=== PATIENT | male | born 1985 ===

== ENCOUNTER 2017-04-26 21:35 | Inpatient (IN) | payer MEDICAID, OTHER ==
[2017-04-26 21:39] VITALS: O2SAT 99
--- NOTE | 2017-04-26 22:23 | ED PDOC ---
HPI: Psych/Substance Abuse Time Seen by Provider: 04/26/17 21:40 Chief Complaint (Nursing): Psychiatric Evaluation Chief Complaint (Provider): Psychiatric evaluation ED Caveat: Uncooperative History Per: Family Onset/Duration Of Symptoms: Days Current Symptoms Are (Timing): Still Present Additional Complaint(s): The patient is a 32yo male, brought in by his mother for evaluation due to aggressive behaviour. Patient is refusing to answer questions and his mother provides most of the history. Mother reports the patient ran out of his medications and is refusing to get refills or new medications. A full HPI and ROS is limited due to patient being uncooperative. Past Medical History Reviewed: Historical Data, Nursing Documentation, Vital Signs Vital Signs: Last Vital Signs Temp 98.3 F 04/26/17 21:36 Pulse 65 04/26/17 21:36 Resp 20 04/26/17 21:36 BP 143/71 04/26/17 21:36 Pulse Ox 99 04/26/17 21:36 - Medical History PMH: Bipolar Disorder, Schizophrenia Denies: Asthma, Diabetes, Hepatitis, HIV, HTN, Pneumonia, Chronic Kidney Disease, Seizures, Sexually Transmitted Disease - Surgical History Surgical History: Tonsillectomy - Family History Family History: States: Unknown Family Hx - Home Medications Home Medications: Ambulatory Orders Medication Instructions Recorded Smolan Carbonate [Smolan 300 mg PO Q12 #60 cap 09/09/16 Carbonate 300MG] OLANZapine [Zyprexa] 2.5 mg PO Q12 #60 tab 09/09/16 lamoTRIgine [Lamictal] 25 mg PO Q12 #60 tab 09/09/16 traZODone [Desyrel] 50 mg PO HS #30 tab 09/09/16 - Allergies Allergies/Adverse Reactions: Allergies Allergy/AdvReac Type Severity Reaction Status Date / Time No Known Allergies Allergy Verified 04/14/16 10:00 Review of Systems ROS Statement: Except As Marked, All Systems Reviewed And Found Negative Psych: Positive for: Other (non complaint with medications) Physical Exam - Reviewed Nursing Documentation Reviewed: Yes Vital Signs Reviewed: Yes - Physical Exam Appears: Positive for: Well, Non-toxic, No Acute Distress Head Exam: Positive for: ATRAUMATIC, NORMAL INSPECTION, NORMOCEPHALIC Skin: Positive for: Normal Color Eye Exam: Positive for: Normal appearance Neck: Positive for: Normal Cardiovascular/Chest: Positive for: Regular Rate, Rhythm Respiratory: Positive for: Normal Breath Sounds. Negative for: Respiratory Distress Gastrointestinal/Abdominal: Positive for: Normal Exam Extremity: Positive for: Normal ROM. Negative for: Deformity, Swelling Neurologic/Psych: Positive for: Alert, Oriented, Mood/Affect (flat) - Laboratory Results Result Diagrams: 04/26/17 22:27 04/26/17 22:27 - ECG O2 Sat by Pulse Oximetry: 99 (RA) Pulse Ox Interpretation: Normal Medical Decision Making Medical Decision Making: Time: 2149 Impression: Decompensated bipolar disorder in setting of non-compliance with medicine regimen. Plan: -- Labs -- Urinalysis -- Crisis evaluation Reassess 204: Pt. admitted to psychiatric service w/ dx: of bipolar d/o under Dr. Reagan. Scribe Attestation: Documented by Faith Espinal acting as a scribe for Nicolas Duff MD. Provider Attestation: All medical record entries made by the Scribe were at my direction and personally dictated by me. I have reviewed the chart and agree that the record accurately reflects my personal performance of the history, physical exam, medical decision making, and the department course for this patient. I have also personally directed, reviewed, and agree with the discharge instructions and disposition. Disposition - Clinical Impression Clinical Impression: Bipolar disorder - Disposition Disposition Time: 02:04 Condition: STABLE
[2017-04-26 22:31] LABS: BASO % 0.5 % (0.0-2.0); EOS # 0.2 K/uL (0.0-0.7); EOS % 3.3 % (0.0-4.0); HEMATOCRIT 40.3 % (35.0-51.0); LYMPH # 1.6 K/uL (1.0-4.3); LYMPH % 21.8 % (20.0-40.0); MEAN CELL VOLUME 85.3 fl (80.0-94.0); MEAN CORPUSCULAR HEMOGLOBIN 28.5 pg (27.0-31.0); MEAN CORPUSCULAR HGB CONC 33.4 g/dL (33.0-37.0); MEAN PLATELET VOLUME 8.7 fl (7.2-11.7); MONO # 0.5 K/uL (0.0-0.8); MONO % 7.4 % (0.0-10.0); NEUT # 4.9 K/uL (1.8-7.0); RED CELL DISTRIBUTION WIDTH 13.3 % (11.5-14.5); WHITE BLOOD COUNT 7.3 K/uL (4.8-10.8)
[2017-04-26 22:40] LABS: RBC URINE 3 /hpf (0-3); URINE BACTERIA RARE (<OCC); URINE BILIRUBIN NEGATIVE (NEGATIVE); URINE BLOOD NEGATIVE (NEGATIVE); URINE COLOR YELLOW (YELLOW); URINE GLUCOSE (UA) NEG (Normal); URINE KETONE NEGATIVE (NEGATIVE); URINE LEUKOCYTE ESTERASE NEG Leu/uL (Negative); URINE PROTEIN NEGATIVE (NEGATIVE); URINE UROBILINOGEN 0.2-1.0 mg/dL (0.2-1.0); WBC URINE 1 /hpf (0-5)
[2017-04-26 22:46] LABS: ALCOHOL SERUM < 10 mg/dl (0-10); BLOOD UREA NITROGEN 15 mg/dl (9-20); CALCIUM 9.4 mg/dL (8.4-10.2); CARBON DIOXIDE 23 mmol/L (22-30); CHLORIDE 104 mmol/L (98-107); GFR AFRICAN-AMERICAN > 60; GLUCOSE,RANDOM 84 mg/dL (75-110); POTASSIUM 3.8 MMOL/L (3.6-5.0); SODIUM 140 mmol/l (132-148)
[2017-04-27] MEDS ORDERED: Alum-Mag Hydrox-Simethicone Susp (30 mL) PO PRN (04:54)
[2017-04-27] MEDS ORDERED: Magnesium Hydroxide Susp 30 ml UD PO PRN (04:54)
[2017-04-27] MEDS ORDERED: DiphenhydrAMINE 50 mg/ml Inj IM PRN (04:54)
--- NOTE | 2017-04-27 05:32 | PCM.BM ---
<Maribel Perez - Last Filed: 04/27/17 05:30> Treatment Plan Problems - Problems identified on initial assessmt Agitatted/aggressive behavior Date Initiated: 04/27/17 Time Initiated: 05:31 Assessment reference: NA Status: Active Medication nonadherence Date Initiated: 04/27/17 Time Initiated: 05:31 Assessment reference: NA Status: Active Treatment assets and liabiliti Patient Assests: ADL independent, good support system, negotiates basic needs Patient Liabilities: relationship conflicts - Milieu Protocol Maintain good personal hygiene: daily Encourage regular showers, daily Assist patient to perform ADL's, every shift Remind patient to perform daily oral care Conduct patient checks and document Observation sheet: Q15 minutes Maintain personal safety: every shift Educate patient to report safety concerns to staff, every shift Monitor environment for contraband/sharps Medication safety: Monitor for expected outcome, potential side effects: every shift, daily, Assess barriers to learning: every shift, Assess readiness for medication education: every shift <Lukas Donahue J - Last Filed: 05/06/17 09:52> Family Contact Family involvement: Family/SO is involved Family contact: Patient agrees to contact, Family has been contacted by patient , Telephone contact initiated by staff Family contact name: Naheed Merrill (Mother) [phone] Family contacted how many times per week?: 2 Family contact comment: Pt's mother is concerned about pt's aggressivity in the home and wants to ensure that he will be compliant with outpatient services upon discharge. Customer Development Manager discussed how pt has been on the unit and the medications that were initiated. - Goals for Treatment Patient goals for treatment: Pt has limited insight and could not list any goals. Patient's family/SO goals for treatment: Gain insight and understand importance for outpatient services. Discharge/Continuing Care - Education Needs Education Needs: Family Medication, Family Aftercare Safety Plan, Patient Medication, Patient Diagnosis/Disease Process, Patient Coping Skills, Patient Anger Management skills, Patient Aftercare Safety Plan - Discharge Discharge Criteria: Tolerates medication w/o severe side effects, Free of paranoid thoughts, Free of agitation, Normal sleep pattern, Reduction of target symptoms Discharge to:: Home, With Family - Treatment Team Participation Discussed with Family/SO: Yes Was Patient/Family/SO present at Treatment Team Meeting: Yes
--- NOTE | 2017-04-27 12:48 | CP.PCM.CON ---
History of Present Illness - History of Present Illness History of Present Illness: Reason for Consult: per hospital protocol CC: aggressive behavior HPI 32 year old male no past medical history states he was brought here after his mother called this merchandise complaint adjuster on him for throwing things around the house and locking her out. Patient denies any other complaints at this time. HD stable NAD. ROS: per HPI, 12 systems reviewed and negative PMH: denies PSH: denies FH: denies SH: denies tobacco, ETOH, IVDU Meds: as below Allergies: NKDA Vitals: reviewed and currently stable Exam: GEN: WDWN, alert, cooperative HEENT: NCAT, PERRL, EOMI NECK: supple, no JVD, no lymphadenopathy CARDIAC: +S1S2 RRR LUNG: CTAB No WRR ABD: SOFT NT ND BSX4 NO MASSES NO HSM EXT: +pedal pulses, equal strength NEURO: AAOx3 SKIN warm, dry PSYCH normal mood, normal affect Labs: 04/26/17 22:27 04/26/17 22:27 Assessment and Plan: 32 year old male no past medical history states he was brought here after his mother called this merchandise complaint adjuster on him for throwing things around the house and locking her out. Patient denies any other complaints at this time. HD stable NAD. Aggressive behavior management per psychiatry team Past Patient History - Past Medical History & Family History Past Medical History?: No - Past Social History Smoking Status: Never Smoked - CARDIAC Hx Cardiac Disorders: No - PULMONARY Hx Respiratory Disorders: No - NEUROLOGICAL Hx Neurological Disorder: No - HEENT Hx HEENT Problems: No - RENAL Hx Chronic Kidney Disease: No - ENDOCRINE/METABOLIC Hx Endocrine Disorders: No - HEMATOLOGICAL/ONCOLOGICAL Hx Blood Disorders: No - INTEGUMENTARY Hx Dermatological Problems: No - MUSCULOSKELETAL/RHEUMATOLOGICAL Hx Musculoskeletal Disorders: No - GASTROINTESTINAL Hx Gastrointestinal Disorders: No - GENITOURINARY/GYNECOLOGICAL Hx Genitourinary Disorders: No - PSYCHIATRIC Hx Psychophysiologic Disorder: Yes - SURGICAL HISTORY Hx Surgeries: No Hx Tonsillectomy: No - ANESTHESIA Hx Anesthesia: No Hx Anesthesia Reactions: No Meds Allergies/Adverse Reactions: Allergies Allergy/AdvReac Type Severity Reaction Status Date / Time No Known Allergies Allergy Verified 04/14/16 10:00 - Medications Medications: Current Medications Acetaminophen (Tylenol 325mg Tab) 650 mg PO Q4 PRN PRN Reason: Pain, moderate (4-7) Al Hydrox/Mg Hydrox/Simethicone (Maalox Plus 30 Ml) 30 ml PO Q4 PRN PRN Reason: Dyspepsia Diphenhydramine HCl (Benadryl) 50 mg IM Q6 PRN PRN Reason: Extrapyramidal S/S Unable PO Diphenhydramine HCl (Benadryl) 50 mg PO HS PRN PRN Reason: Sleep Haloperidol (Haldol) 5 mg PO Q4 PRN PRN Reason: Agitation Haloperidol Lactate (Haldol) 5 mg IM Q4 PRN PRN Reason: Agitation, Unable to Take PO Lorazepam (Ativan) 2 mg IM Q4 PRN PRN Reason: Anxiety/Agitation,Unable PO Lorazepam (Ativan) 2 mg PO Q4 PRN PRN Reason: Anxiety/Agitation Magnesium Hydroxide (Milk Of Magnesia) 30 ml PO HS PRN PRN Reason: Constipation Results - Vital Signs Recent Vital Signs: Last Vital Signs Temp 98.3 F 04/27/17 05:25 Pulse 65 04/27/17 05:25 Resp 20 04/27/17 05:25 BP 143/71 04/27/17 05:25 Pulse Ox 99 04/27/17 03:41 - Labs Result Diagrams: 04/26/17 22:27 04/26/17 22:27
--- NOTE | 2017-04-27 20:05 | PCM.PSYCH ---
Initial Psychiatric Evaluation - Initial Psychiatric Evaluation Chief Complaint (in patient's own words): i was at home and i had a fight with mother(verbal) and I locked her out of house Patient's Reaction to Hospitalization: pt was admitted to [facility] from [facility] er after presented to er via ems. reports that after a verbal argument with his mother he locked her out of apartment. When I looked out of window- i saw police and ambulances coming from both directions on my block. 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 ER notes reveal that pt was reported throwing furniture at home-pt. defers this. Pt. reports that has not been taking medications for several months because he does not think he needed them "I was feeling better". When I argue with my mother I go out at night and walk around-sometimes I throw garbage cans over a gate etc to meet people sometimes I walk in and out of restaurants (entrance/exit) because I want to meet people". Reports that "was trying to build a momentum to start school [id number] so I cleaned out my bank account and gave my resignation for job for two weeks. 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 History of Present Illness and Precipitating Events: see above Current Medications: Active Medications Generic Name Dose Route Start Last Admin Trade Name Freq PRN Reason Stop Dose Admin Acetaminophen 650 mg 04/27/17 04:54 Tylenol 325mg Tab PO Q4 PRN Pain, moderate (4-7) Al Hydrox/Mg Hydrox/Simethicone 30 ml 04/27/17 04:54 Maalox Plus 30 Ml PO Q4 PRN Dyspepsia Diphenhydramine HCl 50 mg 04/27/17 04:54 Benadryl IM Q6 PRN Extrapyramidal S/S Unable PO Diphenhydramine HCl 50 mg 04/27/17 04:57 Benadryl PO HS PRN Sleep Haloperidol 5 mg 04/27/17 04:54 Haldol PO Q4 PRN Agitation Haloperidol Lactate 5 mg 04/27/17 04:54 Haldol IM Q4 PRN Agitation, Unable to Take PO Lorazepam 2 mg 04/27/17 04:54 Ativan IM Q4 PRN Anxiety/Agitation,Unable PO Lorazepam 2 mg 04/27/17 04:54 Ativan PO Q4 PRN Anxiety/Agitation Magnesium Hydroxide 30 ml 04/27/17 04:54 Milk Of Magnesia PO HS PRN Constipation Past Psychiatric History - Past Psychiatric History Prior Professional Help: previous treatment inpt outpt [facility] no consistant f/u History of Abuse: denies History of ETOH/Drug Use: denies History of Family Illness: denies Pertinent Medical Hx (Current Medical&Sleep Prob, Allergies): Allergies Allergy/AdvReac Type Severity Reaction Status Date / Time No Known Allergies Allergy Verified 04/14/16 10:00 [place] Carbonate [S[place] Carbonate 300MG] 300 mg PO Q12 #60 cap 09/09/16 OLANZapine [Zyprexa] 2.5 mg PO Q12 #60 tab 09/09/16 lamoTRIgine [Lamictal] 25 mg PO Q12 #60 tab 09/09/16 traZODone [Desyrel] 50 mg PO HS #30 tab 09/09/16 Review of Systems - Psychiatric Psychiatric: Difficulty Concentrating, Irritability, Mood Swings Mental Status Examination - Personal Presentation Personal Presentation: Looks younger than stated age - Affect Affect: Constricted - Motor Activity Motor Activity: Psychomotor Retardation - Reliability in Providing Information Reliability in Providing Information: Other - Mood Additional comments: vacillations in mood, decreased sleep - Formal Thought Process Formal Thought Process: Paranoia DSM 5 DX - DSM 5 DSM 5 Diagnosis: Bipolar I MRE MANIC Hx. Schizoaffective Disorder Bipolar Type - Recommended/Plan of Treatment Treatment Recommendations and Plan of Treatment: inpt admission per attending vital signs and clinical observation per protocol and per status hospitalist consult prns per unit protocol start risperdal m tab 2mg po hs start depakote ec 100omg po hs (pt 180lbs/approx. 90 kg) team to attempt to obtain further collateral information
[2017-04-27] MEDS: Divalproex 500 mg ER (ONCE DAILY formulation) PO SCH (21:14)
[2017-04-27] MEDS: Risperidone M TAB 2 MG PO SCH (21:15)
[2017-04-28 09:16] LABS: T4 9.15 ug/dl (5.5-11.0)
[2017-04-28 09:29] LABS: THYROID STIMULATING HORMONE 1.43 mIU/ML (0.46-4.68)
--- NOTE | 2017-04-28 11:30 | PCM.PYCHPN ---
Psychiatric Progress Note - Psychiatric Progress Note Patient seen today, length of contact: in treatment team Patient Chief Complaint: i hate white people Problems Identified/Issues Discussed: pt has submitted and retracted a 48 hour notice. talks about diagnosing himself with borderline personality disorder and using dbt recordings to treat himself. he states he feels like he is better because he got a job and a bank account, but then he states he submitted his 2 weeks notice at work and closed his bank account and he wants to move to [employer]. his thoughts are disorganized. he denies medication side effects. Medication Change: No Medical Record Reviewed: Yes Mental Status Examination - Cognitive Function Orientation: Person, Place, Situation, Time Memory: Intact Attention: Poor Concentration: Poor Association: Loose Fund of Knowledge: WNL Decription of patient's judgement and insights: superficial insight, questionable judgment - Affect Affect: Constricted - Speech Speech: Appropriate - Formal Thought Process Formal Thought Process: Delusions, Paranoia, Loosening of associations Psychotic Thoughts and Behaviors: grossly disorganized thoughts - Suicidal Ideation Suicidal Ideation: No - Homicidal Ideation Homicidal Ideation: No Goal/Treatment Plan - Goal/Treatment Plan Need for Continued Stay: Remain at risks for inpatient hospitalization, Severe functional impairment Progress Toward Problem(s) and Goals/Treatment Plan: schizophrenia pt needs further treatment and stabilization grossly disturbed thoughts/behaviors will continue with risperdal and titrate up dose encourage appropriate participation in groups Estimated Date of D/C: 05/10/17
[2017-04-28] MEDS: Divalproex 500 mg ER (ONCE DAILY formulation) PO SCH (21:33)
[2017-04-28] MEDS: Risperidone M TAB 2 MG PO SCH (21:33)
[2017-04-29] MEDS: Risperidone M tab 1 MG PO SCH (09:51)
--- NOTE | 2017-04-29 10:23 | PCM.PYCHPN ---
Psychiatric Progress Note - Psychiatric Progress Note Patient seen today, length of contact: discussed with team Patient Chief Complaint: i m okay Problems Identified/Issues Discussed: pt taking risperdal as prescribed reports good sleep visible in milieu. he denies side effects with risperdal. no aggression or agitation. Medication Change: Yes (inc. risperdal) Medical Record Reviewed: Yes Mental Status Examination - Cognitive Function Orientation: Person, Place, Situation, Time Memory: Intact Attention: Poor Concentration: Poor Association: Loose Fund of Knowledge: WNL Decription of patient's judgement and insights: variable - Mood Mood: Anxious - Affect Affect: Constricted - Speech Speech: Appropriate - Formal Thought Process Formal Thought Process: Delusions, Paranoia, Loosening of associations Psychotic Thoughts and Behaviors: grossly disorganized thoughts - Suicidal Ideation Suicidal Ideation: No - Homicidal Ideation Homicidal Ideation: No Goal/Treatment Plan - Goal/Treatment Plan Need for Continued Stay: Remain at risks for inpatient hospitalization, Severe functional impairment Progress Toward Problem(s) and Goals/Treatment Plan: schizophrenia pt needs further treatment and stabilization grossly disturbed thoughts/behaviors will continue with risperdal and titrate up dose to 1mg in am and 2hs today and will increase up to 3mg bid encourage appropriate participation in groups Estimated Date of D/C: 05/10/17
[2017-04-29] MEDS: Risperidone M TAB 2 MG PO SCH (21:47)
[2017-04-29] MEDS: Divalproex 500 mg ER (ONCE DAILY formulation) PO SCH (21:47)
[2017-04-30] MEDS: Risperidone M tab 1 MG PO SCH ×2 (10:19→22:05)
--- NOTE | 2017-04-30 10:27 | PCM.PYCHPN ---
Psychiatric Progress Note - Psychiatric Progress Note Patient seen today, length of contact: discussed with team Patient Chief Complaint: i guess i'm better Problems Identified/Issues Discussed: pt taking risperdal as prescribed and denies medication side effects pt still reports good sleep visible in milieu, but appears to be internally preoccupied. he is mildly evasive/sarcastic when interacting with this junior technical writer no aggression or agitation. Medication Change: Yes (inc. risperdal) Medical Record Reviewed: Yes Mental Status Examination - Cognitive Function Orientation: Person, Place, Situation, Time Memory: Intact Attention: Poor Concentration: Poor Association: Loose Fund of Knowledge: WNL Decription of patient's judgement and insights: superficial insight - Mood Mood: Anxious - Affect Affect: Constricted - Speech Speech: Appropriate - Formal Thought Process Formal Thought Process: Delusions, Paranoia, Loosening of associations Psychotic Thoughts and Behaviors: grossly disorganized thoughts - Suicidal Ideation Suicidal Ideation: No - Homicidal Ideation Homicidal Ideation: No Goal/Treatment Plan - Goal/Treatment Plan Need for Continued Stay: Remain at risks for inpatient hospitalization, Severe functional impairment Progress Toward Problem(s) and Goals/Treatment Plan: schizophrenia pt needs further treatment and stabilization grossly disturbed thoughts/behaviors will continue with risperdal and titrate up dose to 1mg in am and 3mg hs today and will increase up to 3mg bid encourage appropriate participation in groups Estimated Date of D/C: 05/10/17
[2017-04-30] MEDS: Divalproex 500 mg ER (ONCE DAILY formulation) PO SCH (22:04)
[2017-05-01 08:13] LABS: ALB/GLOB RATIO 1.5 (1.0-2.1)
[2017-05-01 08:14] LABS: BILIRUBIN,TOTAL 0.3 mg/dl (0.2-1.3)
[2017-05-01] MEDS: Risperidone M tab 1 MG PO SCH ×2 (10:20→22:03)
--- NOTE | 2017-05-01 10:50 | PCM.PYCHPN ---
Psychiatric Progress Note - Psychiatric Progress Note Patient seen today, length of contact: discussed with team Patient Chief Complaint: i am okay Problems Identified/Issues Discussed: pt taking risperdal as prescribed and denies medication side effects pt still reports good sleep depakote level is 69 no aggression or agitation. Medication Change: No ( ) Medical Record Reviewed: Yes Mental Status Examination - Cognitive Function Orientation: Person, Place, Situation, Time Memory: Intact Attention: Poor Concentration: WNL Association: Loose Fund of Knowledge: WNL Decription of patient's judgement and insights: superficial insight - Mood Mood: Anxious - Affect Affect: Constricted - Speech Speech: Appropriate - Formal Thought Process Formal Thought Process: Delusions, Paranoia, Loosening of associations Psychotic Thoughts and Behaviors: grossly disorganized thoughts - Suicidal Ideation Suicidal Ideation: No - Homicidal Ideation Homicidal Ideation: No Goal/Treatment Plan - Goal/Treatment Plan Need for Continued Stay: Remain at risks for inpatient hospitalization, Severe functional impairment Progress Toward Problem(s) and Goals/Treatment Plan: schizophrenia pt needs further treatment and stabilization grossly disturbed thoughts/behaviors will continue with risperdal up towards 3mg bid continue depakote encourage appropriate participation in groups Estimated Date of D/C: 05/10/17
[2017-05-01] MEDS: Divalproex 500 mg ER (ONCE DAILY formulation) PO SCH (22:02)
[2017-05-02] MEDS: Risperidone M tab 1 MG PO SCH ×2 (09:09→21:05)
--- NOTE | 2017-05-02 12:04 | PCM.PYCHPN ---
Psychiatric Progress Note - Psychiatric Progress Note Patient seen today, length of contact: discussed with team Patient Chief Complaint: i am fine Problems Identified/Issues Discussed: pt visible in milieu. calm. no c/o medication side effects. Medication Change: No ( ) Medical Record Reviewed: Yes Mental Status Examination - Cognitive Function Orientation: Person, Place, Situation, Time Memory: Intact Attention: Poor Concentration: WNL Association: Loose Fund of Knowledge: WNL Decription of patient's judgement and insights: superficial insight - Mood Mood: Anxious - Affect Affect: Constricted - Speech Speech: Appropriate - Formal Thought Process Formal Thought Process: Delusions, Paranoia, Loosening of associations Psychotic Thoughts and Behaviors: grossly disorganized thoughts - Suicidal Ideation Suicidal Ideation: No - Homicidal Ideation Homicidal Ideation: No Goal/Treatment Plan - Goal/Treatment Plan Need for Continued Stay: Remain at risks for inpatient hospitalization, Severe functional impairment Progress Toward Problem(s) and Goals/Treatment Plan: schizophrenia pt needs further treatment and stabilization will continue with risperdal up towards 3mg bid continue depakote encourage appropriate participation in groups Estimated Date of D/C: 05/10/17
[2017-05-02] MEDS: Divalproex 500 mg ER (ONCE DAILY formulation) PO SCH (21:05)
[2017-05-03] MEDS: Risperidone M tab 1 MG PO SCH ×2 (09:30→21:18)
--- NOTE | 2017-05-03 11:51 | PCM.PYCHPN ---
Psychiatric Progress Note - Psychiatric Progress Note Patient seen today, length of contact: discussed with team Patient Chief Complaint: i feel more clear Problems Identified/Issues Discussed: pt agrees to take the invega sustenna tomorrow. he had good visit with mother who reported to RN that pt was doing better. pt more organized in terms of his thoughts. he denies medication side effects. Medication Change: Yes (will start sustenna tomorrow) Medical Record Reviewed: Yes Mental Status Examination - Cognitive Function Orientation: Person, Place, Situation, Time Memory: Intact Attention: Poor Concentration: WNL Association: Loose Fund of Knowledge: WNL Decription of patient's judgement and insights: superficial insight - Mood Mood: Anxious - Affect Affect: Constricted - Speech Speech: Appropriate - Formal Thought Process Formal Thought Process: Delusions, Loosening of associations Psychotic Thoughts and Behaviors: more organized in terms of thoughts - Suicidal Ideation Suicidal Ideation: No - Homicidal Ideation Homicidal Ideation: No Goal/Treatment Plan - Goal/Treatment Plan Need for Continued Stay: Remain at risks for inpatient hospitalization, Severe functional impairment Progress Toward Problem(s) and Goals/Treatment Plan: schizophrenia pt needs further treatment and stabilization will start invega sustenna tomorrow encourage participation in treatment Estimated Date of D/C: 05/10/17
[2017-05-03] MEDS: Divalproex 500 mg ER (ONCE DAILY formulation) PO SCH (21:18)
[2017-05-04] MEDS ORDERED: Risperidone M TAB 2 MG PO SCH ×2 (09:00→10:00)
--- NOTE | 2017-05-04 10:01 | PCM.PYCHPN ---
Psychiatric Progress Note - Psychiatric Progress Note Patient seen today, length of contact: discussed with team Patient Chief Complaint: i want to go this week Problems Identified/Issues Discussed: pt now wants to leave this week and states he doesn't want to stay long enough to get the second sustenna injection. he is more clear in terms of his thoughts. he denies medication side effects. he agrees to increase in risperdal to 3mg twice daily. Medication Change: Yes (inc. risperdal) Medical Record Reviewed: Yes Mental Status Examination - Cognitive Function Orientation: Person, Place, Situation, Time Memory: Intact Attention: Poor Concentration: WNL Association: Loose Fund of Knowledge: WNL Decription of patient's judgement and insights: superficial insight - Mood Mood: Anxious - Affect Affect: Constricted - Speech Speech: Appropriate - Formal Thought Process Formal Thought Process: Delusions, Loosening of associations Psychotic Thoughts and Behaviors: more organized in terms of thoughts - Suicidal Ideation Suicidal Ideation: No - Homicidal Ideation Homicidal Ideation: No Goal/Treatment Plan - Goal/Treatment Plan Need for Continued Stay: Remain at risks for inpatient hospitalization, Severe functional impairment Progress Toward Problem(s) and Goals/Treatment Plan: schizophrenia pt needs further treatment and stabilization increase risperdal to 3mg bid will discharge this week to outpt services encourage participation in treatment Estimated Date of D/C: 05/10/17
[2017-05-04] MEDS: Risperidone M tab 1 MG PO SCH (14:27)
[2017-05-04] MEDS ORDERED: Paliperidone Palmitate 234 MG/1.5 ML SYR IM ONE (15:00)
[2017-05-04] MEDS: Divalproex 500 mg ER (ONCE DAILY formulation) PO SCH (21:18)
[2017-05-04] MEDS ORDERED: Risperidone M tab 1 MG PO SCH (22:00)
[2017-05-05] MEDS: Risperidone M tab 1 MG PO SCH ×3 (08:58→21:18)
[2017-05-05 09:11] VITALS: RESP 18
--- NOTE | 2017-05-05 09:36 | PCM.PYCHPN ---
Psychiatric Progress Note - Psychiatric Progress Note Patient seen today, length of contact: discussed with team Patient Chief Complaint: i feel okay now Problems Identified/Issues Discussed: pt doing well on meds. he denies side effects. he is agreeable to go to [facility] and is agreeable to stating the invega hira there. he is participating in groups here. Medication Change: Yes (risperdal increased to 3mg bid yesterday) Medical Record Reviewed: Yes Mental Status Examination - Cognitive Function Orientation: Person, Place, Situation, Time Memory: Intact Attention: Poor Concentration: WNL Association: Loose Fund of Knowledge: WNL Decription of patient's judgement and insights: superficial insight - Mood Mood: Anxious - Affect Affect: Constricted - Speech Speech: Appropriate - Formal Thought Process Formal Thought Process: No Impairment Psychotic Thoughts and Behaviors: more organized in terms of thoughts - Suicidal Ideation Suicidal Ideation: No - Homicidal Ideation Homicidal Ideation: No Goal/Treatment Plan - Goal/Treatment Plan Need for Continued Stay: Remain at risks for inpatient hospitalization, Severe functional impairment Progress Toward Problem(s) and Goals/Treatment Plan: schizophrenia pt needs further treatment and stabilization continue risperdal 3mg bid and depakote pt refered to [facility] encourage participation in treatment Estimated Date of D/C: 05/10/17
[2017-05-05] MEDS: Divalproex 500 mg ER (ONCE DAILY formulation) PO SCH (21:17)
[2017-05-06 09:09] VITALS: BP 112/76; PULSE 81; TEMP 97.5
[2017-05-06] MEDS: Risperidone M tab 1 MG PO SCH (09:18)
--- NOTE | 2017-05-06 09:49 | PCM.PYCHDC ---
Mental Status Examination - Mental Status Examination Orientation: Person, Place, Situation, Time Memory: Intact Mood: Neutral Affect: Constricted Speech: Appropriate Attention: WNL Concentration: WNL Association: WNL Fund of Knowledge: WNL Formal Thought Process: No Impairment Description of patient's judgement and insight: fair insight Psychotic Thoughts and Behaviors: more organized in terms of thoughts Suicidal Ideation: No Current Homicidal Ideation?: No Plan: pt denies any suicidal or homicidal thoughts/plans or intent Discharge Summary - Discharge Note Reason for Hospitalization: non-adherence to treatment, psychosis Psychiatric History (includes Medical, Family, Personal Hx): history of schizoaffective disroder Laboratory Data: depakote level , lfts wnl Consultations:: List each consultation separately and include: 1. Reason for request. 2. Findings. 3. Follow-up Consultations: seen by hospitalist Summary of Hospital Course include:: 1. Description of specific treatment plan utilized for patients during their course of treatmen. 2. Summarize the time- course for resolution of acute symptoms and/or regressed behaviors. 3. Describe issues identified and worked on during hospitalization. 4. Describe medication utilized. 5. Describe medical problems identified and treated. 6. Reassessment of suicide risk Summary of Hospital Course: pt was admitted to [facility] and oriented to the unit. pt was placed on routine safety protocols. pt was started on depakote and risperidone and the dosages were titrated up to current levels. he improved in terms of his thoughts and he was much less irritable. sleep was improved. the team talked to the patient about transitioning to invega sustenna from risperdal, and he initially agreed to this option. however, the pt wanted to leave the hospital and would not have time for both the initiation injections. he was agreeing to start ivega sustenna once he is in the outpatient program. he was agreeing to attend the [facility] after discharge. he was denying any medication side effects. he was denying any suicidal or homicidal thoughts at the time of discharge. pt pt's family was visiting pt on the unit and visits went well. - Final Diagnosis (DSM 5) Condition upon Discharge: STABLE DSM 5: schizoaffective disorder, bipolar type Disposition: HOME/ ROUTINE Follow-up Treatment Plan: follow up with aftercare as directed take medications as prescribed do not use alcohol, tobacco or other illicit substances call 911 if any suicidal or homicidal thoughts Prescriptions/Medication Reconciliation: Divalproex [Depakote ER(ONCE DAILY)] 1,000 mg PO HS #60 ter Risperidone [Risperdal M-TAB] 3 mg PO AMHS #30 odt - Smoking Cessation Smoking Cessation Medication prescribed: No - Antipsychotic Medications Pt discharged on 2 or more routine antipsychotic medications: No
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
== END 2017-05-06 11:18 | disposition home or self-care (01) | DRG 430 ==
LOC: H.ER 21:35 → H.EROBSV 21:52 → OBSVTOIN 04-27 02:04 → H.ERHOLD 04-27 02:04 → H.PSYCH 04-27 04:45
PROVIDERS: ADMIT Psychiatry & Neurology Psychiatry; ATTEND Psychiatry & Neurology Psychiatry
PROC: GZHZZZZ Group Psychotherapy (ICD-10-PCS; principal; 2017-04-28)
PROC: GZ51ZZZ Individual Psychotherapy, Behavioral (ICD-10-PCS; 2017-04-28)
DX: F25.0 Schizoaffective disorder, bipolar type (principal); Z91.14 Patient's other noncompliance with medication regimen; F60.3 Borderline personality disorder; Z79.899 Other long term (current) drug therapy

== ENCOUNTER 2018-01-19 19:15 | Emergency (ER) | payer MEDICAID, OTHER ==
[2018-01-19 19:33] VITALS: O2SAT 99
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
[2018-01-19 22:23] LABS: MEAN CELL VOLUME 84.5 fl (80.0-94.0); MEAN CORPUSCULAR HEMOGLOBIN 28.1 pg (27.0-31.0); MEAN CORPUSCULAR HGB CONC 33.2 g/dL (33.0-37.0); RBC 5.33 Mil/uL (4.40-5.90); RED CELL DISTRIBUTION WIDTH 12.7 % (11.5-14.5); WHITE BLOOD COUNT 6.5 K/uL (4.8-10.8)
[2018-01-19 22:26] LABS: ALB/GLOB RATIO 1.3 (1.0-2.1); ALBUMIN 4.8 g/dL (3.5-5.0); ALT/SGPT 23 U/L (21-72); AST/SGOT 31 U/L (17-59); BLOOD UREA NITROGEN 19 mg/dl (9-20); CALCIUM 9.4 mg/dL (8.4-10.2); GFR AFRICAN-AMERICAN > 60; GFR NON-AFRICAN AMERICAN > 60
[2018-01-19 23:39] VITALS: BP 132/68; PULSE 78; RESP 14; TEMP 97.4
--- NOTE | 2018-01-20 09:11 | CARD ---
APPROVED REPORT EKG Measurement Heart [id number] <Conclusion> Sinus bradycardia Early repolarization Otherwise normal ECG
== END 2018-01-19 23:51 | disposition home or self-care (01) ==
LOC: H.ER 19:15
DX: F31.9 Bipolar disorder, unspecified (principal); F20.9 Schizophrenia, unspecified

== ENCOUNTER 2018-10-16 21:48 | Emergency (ER) | payer MEDICAID, OTHER ==
[2018-10-16 21:57] VITALS: O2SAT 99
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
[2018-10-17 02:01] VITALS: BP 130/68; PULSE 82; RESP 16; TEMP 98.2
== END 2018-10-17 01:40 | disposition home or self-care (01) ==
LOC: H.ER 21:48
DX: F31.9 Bipolar disorder, unspecified (principal); F20.9 Schizophrenia, unspecified